=== PATIENT | female | born 1965 | race Caucasian/White ===

== ENCOUNTER 2019-01-24 11:03 | Emergency (ER) | payer OTHER ==
[~2019-01-24] VITALS: Ht 154.9 cm; Wt 71.7 kg
[2019-01-24] MEDS ORDERED: AROMASIN25 MG PO (11:13)
== END 2019-01-24 14:32 | disposition home or self-care (01) ==
LOC: ER 11:03
DX: R10.11 Right upper quadrant pain (principal); C50.919 Malignant neoplasm of unspecified site of unspecified female breast; C78.7 Secondary malignant neoplasm of liver and intrahepatic bile duct

== ENCOUNTER 2019-04-07 14:42 | Emergency (ER) | payer OTHER ==
[~2019-04-07] VITALS: Ht 154.9 cm; Wt 68.0 kg
[~2019-04-07 14:42] MED LIST: AROMASIN25 MG PO
== END 2019-04-07 20:41 | disposition home or self-care (01) ==
LOC: ER 14:42
DX: K56.41 Fecal impaction (principal); R10.84 Generalized abdominal pain

== ENCOUNTER 2019-04-10 09:14 | Emergency (ER) | payer OTHER ==
[~2019-04-10] VITALS: Ht 154.9 cm; Wt 59.0 kg
[2019-04-11] MEDS ORDERED: ZOFRAN8 MG (14:37)
[2019-04-11] MEDS ORDERED: AROMASIN25 MG (14:37)
== END 2019-04-10 22:04 | disposition home or self-care (01) ==
LOC: ER 09:14
DX: R10.84 Generalized abdominal pain (principal); C50.919 Malignant neoplasm of unspecified site of unspecified female breast

== ENCOUNTER 2019-04-11 14:09 | Emergency (ER) | payer OTHER ==
[~2019-04-11] VITALS: Ht 154.9 cm; Wt 66.2 kg
[2019-04-11] MEDS ORDERED: ZOFRAN8 MG (14:37)
[2019-04-11] MEDS ORDERED: AROMASIN25 MG (14:37)
== END 2019-04-11 16:13 | disposition home or self-care (01) ==
LOC: ER 14:09
DX: K71.9 Toxic liver disease, unspecified (principal)

== ENCOUNTER 2019-04-19 11:43 | Emergency (ER) | payer OTHER ==
[~2019-04-19] VITALS: Ht 154.9 cm; Wt 66.2 kg
[~2019-04-19 11:43] MED LIST changes: +AROMASIN25 MG; +ZOFRAN8 MG
[2019-04-19] MEDS ORDERED: PERCOCET 10-321 EACH PO (13:03)
[2019-04-19] MEDS ORDERED: DURAGESIC1 EAC1 TD (13:03)
== END 2019-04-19 13:24 | disposition home or self-care (01) ==
LOC: ER 11:43
DX: M79.621 Pain in right upper arm (principal); C50.919 Malignant neoplasm of unspecified site of unspecified female breast; C78.7 Secondary malignant neoplasm of liver and intrahepatic bile duct; C78.00 Secondary malignant neoplasm of unspecified lung

== ENCOUNTER 2019-07-21 10:54 | Emergency (ER) | payer OTHER ==
[~2019-07-21] VITALS: Ht 154.9 cm; Wt 54.9 kg
[~2019-07-21 10:54] MED LIST changes: +DURAGESIC1 EAC1 TD; +PERCOCET 10-321 EACH PO
[2019-07-21] MEDS ORDERED: PHENERGAN25 MG PO (11:04)
[2019-07-21] MEDS ORDERED: [UNRECOGNIZED DRUG - OTHER] PO (11:04)
[2019-07-21] MEDS ORDERED: ZOFRAN8 MG (11:04)
== END 2019-07-21 16:15 | disposition home or self-care (01) ==
LOC: ER 10:54
DX: E86.0 Dehydration (principal); C50.919 Malignant neoplasm of unspecified site of unspecified female breast

== ENCOUNTER 2019-07-31 14:22 | Emergency (ER) | payer OTHER ==
[~2019-07-31] VITALS: Ht 157.5 cm; Wt 55.3 kg
[~2019-07-31 14:22] MED LIST changes: +PHENERGAN25 MG PO; +[UNRECOGNIZED DRUG - OTHER] PO
== END 2019-07-31 17:17 | disposition home or self-care (01) ==
LOC: ER 14:22
DX: N39.0 Urinary tract infection, site not specified (principal)

== ENCOUNTER 2019-09-25 20:49 | Emergency (ER) | payer OTHER ==
[~2019-09-25] VITALS: Ht 154.9 cm; Wt 52.2 kg
== END 2019-09-26 00:59 | disposition home or self-care (01) ==
LOC: ER 20:49
DX: R10.12 Left upper quadrant pain (principal); R11.2 Nausea with vomiting, unspecified; C50.919 Malignant neoplasm of unspecified site of unspecified female breast
CPT/HCPCS: 74177; Q9965

== ENCOUNTER 2019-09-28 15:15 | Emergency (ER) | payer OTHER ==
[~2019-09-28] VITALS: Ht 154.9 cm; Wt 50.8 kg
[2019-09-28] MEDS ORDERED: VISTARIL25 MG (15:22)
== END 2019-09-29 02:09 | disposition home or self-care (01) ==
LOC: ER 15:15
DX: K83.1 Obstruction of bile duct (principal); R10.84 Generalized abdominal pain